=== PATIENT | female | born 1990 | race Caucasian/White ===

== ENCOUNTER → 2019-08-04 | Day surgery (SDC) | payer BC ==
[~2019-08-04] MED LIST: ESCITALOPRAM OX10 MG PO; HYDR25CA75 PO; IPRATRPIUM/ALBUTEROL 0.5/2.5MG 3 ML NEBU. NEB PRN; IV RINGERS SOLUTION,LACTATED 1,000 ML IV SCH; MULT-245 PO; ONDANSETRON PF 4 MG/2 ML VIAL. IV PRN; PROPOFOL 40 ML IV ONE
[2019-08-04 07:22] LABS: U PREG PATIENT NEGATIVE (NEG)
[2019-08-04 09:40] VITALS: BP 100/64
--- NOTE | 2019-08-08 15:07 | PATHOLOGY ---
[facility] Accession Number: [id number] . 01 Material submitted: . ileum - TERMINAL ILEUM BIOPSY . 01 Clinical history: . None provided . 02 Diagnosis: Small intestine mucosa, terminal ileum biopsies: - Active chronic ileitis, moderate to marked, without granulomas or specific features. (JPM:laura; 08/08/2019) S 08/08/2019 1141 Local . 02 Comment: Sections of the terminal ileum biopsy reveal segments of small intestine mucosa showing moderate to marked active chronic inflammation. There are no granulomas or specific features. Correlate clinically. (JPM:laura; 08/08/2019) . 02 Electronically signed: . Eddie Olmedo MD, Pathologist NPI- [id number] . 01 Gross description: . The specimen is received in formalin, labeled "Lorena Bledsoe, terminal ileum". Received are three segments of pale gamble soft tissue ranging in size from 0.3 to 0.4 cm in maximum dimensions. The specimen is submitted entirely in cassette A1. ([facility]; 08/05/2019) QA/QA 08/05/2019 1542 Local . 02 Pathologist provided ICD-10: K52.9 . 02 CPT . 522448 Specimen Comment: A courtesy copy of this report has been sent to [phone] Specimen Comment: [phone] Specimen Comment: Report sent to / DR RILEY Performed at: 01 [facility] [address], [place] [id number] MD uRdi Silverio MD Phone: [phone] Performed at: 02 [facility] [address] [place], [place] [id number] MD Eddie Olmedo MD Phone: [phone]
== END ==
LOC: SURG 06:20
PROVIDERS: ATTEND Internal Medicine Gastroenterology
DX: K50.90 Crohn's disease, unspecified, without complications (principal); K52.9 Noninfective gastroenteritis and colitis, unspecified; Z72.89 Other problems related to lifestyle
CPT/HCPCS: 45380; 81025; 88305; J2704; J7120